=== PATIENT | female | born 1985 | race Caucasian/White ===

== ENCOUNTER 2023-07-20 12:45 | Emergency (ER) | payer BC ==
[2023-07-20] MEDS: cefTRIAXone 500 MG, Lidocaine 1% 1 ML IM ONE (13:30)
[2023-07-21 11:47] LABS: C.TRACHOMATIS BY TMA Negative (Negative); M GENITALIUM Positive (Negative); M GENITALIUM SOURCE Urine; N.GONORRHOEAE BY TMA Negative (Negative); SOURCE Urine
== END 2023-07-20 13:36 | disposition home or self-care (01) ==
LOC: DL.ED 12:45
DX: G56.01 Carpal tunnel syndrome, right upper limb (principal); Z20.2 Contact with and (suspected) exposure to infections with a predominantly sexual mode of transmission
CPT/HCPCS: 87491; 87563; 87591; 96372; 99283; 99284; J0696; J3490